=== PATIENT | female | born 1985 | race Caucasian/White ===

== ENCOUNTER → 2021-12-15 09:04 | Outpatient (CLI) | payer OTHER, SELFPAY ==
[2021-12-15 09:26] LABS: Add Manual Diff / Slide Review NO; Basophils Absolute Auto 0 /uL (0-100); Eosinophils Absolute Auto 100 /uL (0-450); Hematocrit 37.2 % (36-46); Lymphocytes Absolute Auto 1500 /uL (1100-4500); Lymphocytes Percent Auto 34.3 % (25-40); Mean Corpuscular HGB Conc 34.9 % (30-36); Mean Corpuscular Hemoglobin 31.9 PG (26-34); Mean Corpuscular Volume 91.3 fL (80-100); Monocytes Absolute Auto 500 /uL (0-900); Monocytes Percent Auto 10.7 % (3-14); Neutrophils Absolute Auto 2200 /uL (1500-7000); Platelet Count 215 X10^3/uL (150-400); Red Blood Cell Count 4.07 X10^6/uL (4.0-5.2); White Blood Cell Count 4.4 X10^3/uL (4.5-11.0)
[2021-12-15 09:37] LABS: Alanine Aminotransferase 17 IU/L (<35); Albumin 4.5 g/dL (3.5-5.0); Albumin Globulin Ratio 1.5 (1.0-2.8); Alkaline Phosphatase 36 U/L (38-126); Aspartate Aminotransferase 21 IU/L (14-36); BUN Creatinine Ratio 19.5 (6-22); Bilirubin Total 0.4 mg/dL (0.2-1.3); Blood Urea Nitrogen 15 mg/dL (7-17); Calcium 8.8 mg/dL (8.4-10.2); Carbon Dioxide 24 mmol/L (22-32); Chloride 104 mmol/L (98-107); Cholesterol 154 mg/dL (140-199); Estimated Glomerular Filt Rate > 60 mL/min (>60); Globulin 3.1 g/dL (1.7-4.1); Glucose 86 mg/dL (70-100); HDL Cholesterol 63 mg/dL (40-60); HEMOLYSIS < 15 (0-50); LDL Cholesterol Calculated 81 mg/dL (<100); Lipase 144 U/L (23-300); Sodium 138 mmol/L (137-145); Total Protein 7.6 g/dL (6.3-8.2); Triglycerides 51 mg/dL (35-150)
[2021-12-15 10:06] LABS: TSH w/ Reflex to FT4 2.49 uIU/mL (0.47-4.68)
[2021-12-15 10:48] LABS: Bacteria Urine Many (>30); Culture Indicated Urine Cult Not Indicated; RBC Urine 1-5/HPF (0-5/HPF); Squamous Epithelial Cell Urine 10-30 /HPF (0-5/HPF); WBC Urine 0-1/HPF (0-5/HPF)
== END ==
PROVIDERS: PCP Pediatrics; Referring Provider Pediatrics; Visit Provider Pediatrics
DX: R10.9 Unspecified abdominal pain (principal); R11.0 Nausea; R82.90 Unspecified abnormal findings in urine
CPT/HCPCS: 36415; 80053; 80061; 81015; 83690; 84443; 85025

== ENCOUNTER 2022-05-24 13:54 | Emergency (ER) | payer OTHER, SELFPAY ==
[2022-05-24 14:07] VITALS: BP 112/74; PULSE 69; RESP 16; TEMP 37.6; O2SAT 98; BMI 19.7
--- NOTE | 2022-05-24 14:21 | PC.NURSE ---
Patient told registration that she was leaving.
[2022-05-24 15:03] LABS: Influenza A - CEPHEID Flu A NEGATIVE (NEGATIVE); Influenza B - CEPHEID Flu B NEGATIVE (NEGATIVE); Respiratory Syncytial Virus Negative (Negative)
[2022-05-24 15:06] LABS: COVID-19 CEPHEID 4-PLEX PCR Negative (Negative)
--- NOTE | 2022-05-29 14:19 | ED.HA ---
HPI - Headache <Charisse Mensah PA-C - Last Filed: 05/29/22 14:20> General Chief Complaint: Headache Stated Complaint: severe head ache x4 days Time Seen by Provider: 05/24/22 14:06 History of Present Illness HPI Narrative: left w/o being seen Review of Systems <GOLDY Dan Last Filed: 05/29/22 14:20> Review of Systems Narrative: not seen Patient History <GOLDY Dan Last Filed: 05/29/22 14:20> Medical History Abdominal pain Chicken pox (~1989) Cloudy urine Nausea Family History Father Arrhythmia Social History Smoking Status: Never smoker Smoking Status: Never smoker Exam <Charisse Mensah PA-C - Last Filed: 05/29/22 14:20> Narrative Exam Narrative: not seen Initial Vital Signs Initial Vital Signs: Vital Signs Temperature 99.6 F 05/24/22 14:07 Pulse Rate 69 05/24/22 14:07 Respiratory Rate 16 05/24/22 14:07 Blood Pressure 112/74 05/24/22 14:07 Pulse Oximetry 98 05/24/22 14:07 Oxygen Delivery Method 05/24/22 14:07 <Sherrie Goldman DO - Last Filed: 05/30/22 07:47> Initial Vital Signs Initial Vital Signs: Vital Signs Temperature 99.6 F 05/24/22 14:07 Pulse Rate 69 05/24/22 14:07 Respiratory Rate 16 05/24/22 14:07 Blood Pressure 112/74 05/24/22 14:07 Pulse Oximetry 98 05/24/22 14:07 Oxygen Delivery Method 05/24/22 14:07 MDM - Headache <GOLDY Dan Last Filed: 05/29/22 14:20> Lab Data Labs: Lab Results 05/24/22 Range/Units 14:14 SARS-CoV-2 (PCR) Negative (Negative) Influenza A (RT-PCR) Flu a negative (NEGATIVE) Influenza B (RT-PCR) Flu b negative (NEGATIVE) RSV (PCR) Negative (Negative) <Sherrie Goldman DO - Last Filed: 05/30/22 07:47> Lab Data Labs: Lab Results 05/24/22 Range/Units 14:14 SARS-CoV-2 (PCR) Negative (Negative) Influenza A (RT-PCR) Flu a negative (NEGATIVE) Influenza B (RT-PCR) Flu b negative (NEGATIVE) RSV (PCR) Negative (Negative) Discharge Plan Departure Patient Disposition: Left Without Being Seen Clinical Impression: Patient left without being seen <Sherrie Goldman DO - Last Filed: 05/30/22 07:47> Cosign ED Attending Cosignature Attestation: MARCIANO I was immediately available in the department for consultation. Documentation has been reviewed. I agree with assessment and plan.
== END 2022-05-24 14:21 | disposition left against medical advice (07) ==
PROVIDERS: Emergency Provider Physician Assistant Medical; PCP Registered Nurse Diabetes Educator
DX: R51.9 Headache, unspecified (principal); Z20.822 Contact with and (suspected) exposure to COVID-19
CPT/HCPCS: 0241U; 99281

== ENCOUNTER → 2022-06-02 07:01 | Outpatient (CLI) | payer OTHER, SELFPAY ==
--- NOTE | 2022-06-02 07:02 | DI.US.S_ITS ---
PROCEDURE: US PELVIC COMPLETE INDICATIONS: INFERTILITY; POSSIBLE ENDOMETRIOSIS TECHNIQUE: Real-time scanning was performed of the pelvic organs, with image documentation. Additional endovaginal scanning was necessary due to incomplete visualization of the adnexal and endometrial structures by transabdominal scanning. COMPARISON: None. FINDINGS: Uterus: Uterus is anteverted and normal in size at 11 x 5.5 x 5.9 cm. The myometrium is homogeneous. The endometrium measures 7 mm combined thickness. Ovaries: The right ovary measures 3.2 x 4.1 x 1.3 cm, with a calculated ovarian volume of 9.1 cc. The left ovary measures 2.4 x 3.1 x 1.7 cm, with a calculated ovarian volume of 6.4 cc. The ovaries have a normal sonographic appearance. Less than 12 follicles can be seen in each ovary. No adnexal masses are seen. Other: No pathologic free abdominal or pelvic fluid. IMPRESSION: Focal ultrasound within normal limits. No adnexal masses are seen. We strive to produce accurate, complete, and clear reports of imaging services. To assist us in improving patient care, this report was composed using standard report templates and voice recognition software. Therefore, it may contain abnormal punctuation, insertions and/or omissions. Occasional wrong-word or sound-alike substitutions may occur. Though we review the report and make efforts to correct it, we do recommend that the report be read carefully in proper context to recognize any text inaccuracies. Dictated by: Timothy Hurtado M.D. on 06/02/2022 at 9:10 Approved by: Timothy Hurtado M.D. on 06/02/2022 at 9:11
== END ==
PROVIDERS: PCP Registered Nurse Diabetes Educator; Referring Provider Registered Nurse Diabetes Educator; Visit Provider Registered Nurse Diabetes Educator
DX: R10.2 Pelvic and perineal pain (principal); N80.9 Endometriosis, unspecified
CPT/HCPCS: 76830; 76856

== ENCOUNTER → 2022-09-04 13:33 | Outpatient (CLI) | payer OTHER, SELFPAY ==
[2022-09-04 13:53] LABS: Specimen Label NATERA
[2022-09-04 14:32] LABS: Add Manual Diff / Slide Review NO; Basophils Absolute Auto 0 /uL (0-100); Basophils Percent Auto 0.3 % (0-2); Eosinophils Absolute Auto 100 /uL (0-450); Eosinophils Percent Auto 0.8 % (2-4); Hematocrit 35.3 % (36-46); Hemoglobin 12.1 g/dL (12.0-16.0); Lymphocytes Absolute Auto 1500 /uL (1100-4500); Lymphocytes Percent Auto 12.9 % (25-40); Mean Corpuscular HGB Conc 34.3 % (30-36); Mean Corpuscular Hemoglobin 32.1 PG (26-34); Mean Corpuscular Volume 93.5 fL (80-100); Monocytes Absolute Auto 600 /uL (0-900); Monocytes Percent Auto 5.3 % (3-14); Neutrophils Absolute Auto 9400 /uL (1500-7000); Neutrophils Percent Auto 80.7 % (50-75); Platelet Count 220 X10^3/uL (150-400); Red Blood Cell Count 3.78 X10^6/uL (4.0-5.2); Red Cell Distribution Width 12.9 % (11.6-14.8); White Blood Cell Count 11.7 X10^3/uL (4.5-11.0)
[2022-09-04 15:12] LABS: TSH w/ Reflex to FT4 4.76 uIU/mL (0.47-4.68)
[2022-09-04 15:32] LABS: Hepatitis B Surface Antigen NEGATIVE s/c (NEGATIVE); Rubella Antibody IgG 54.7 IU/mL (>15)
[2022-09-04 15:37] LABS: Free T4, Direct Thyroxine 0.71 ng/dL (0.78-2.19)
[2022-09-04 15:48] LABS: HIV 1 & 2 Ab/Ag 4th Gen Combo NEGATIVE (NEGATIVE); Hep C Virus Ab w/Reflex Quant NEGATIVE s/c (NEGATIVE)
[2022-09-04 16:16] LABS: Appearance Urine UA CLEAR; Bilirubin Urine UA NEGATIVE (NEGATIVE); Color Urine UA YELLOW; Glucose Urine UA NEGATIVE (Negative); Ketones Urine UA NEGATIVE (NEGATIVE); Leukocyte Esterase Urine UA NEGATIVE (NEGATIVE); Nitrite Urine UA NEGATIVE (Negative); Occult Blood Urine UA NEGATIVE (Negative); Protein Urine UA NEGATIVE (Negative); Specific Gravity Urine UA 1.025 (1.000-1.035); Urobilinogen Urine UA 0.2 E.U./dL (0.2)
[2022-09-05 04:13] LABS: RPR Screen Non Reactive (Non Reactive)
[2022-09-05 08:07] LABS: Varicella IgG Antibody 441 index (Immune >165)
== END ==
PROVIDERS: PCP Registered Nurse Diabetes Educator; Referring Provider Family Medicine; Visit Provider Family Medicine
DX: Z34.81 Encounter for supervision of other normal pregnancy, first trimester (principal)
CPT/HCPCS: 36415; 80055; 81003; 84439; 84443; 86787; 86803; 86850; 86900; 86901; 87086; 87389

== ENCOUNTER → 2022-11-06 08:50 | Outpatient (CLI) | payer OTHER, SELFPAY ==
--- NOTE | 2022-11-06 08:51 | DI.US.S_ITS ---
PROCEDURE: US OB >= 14 WEEKS FETUS INDICATIONS: ANATOMY OUTSIDE/PRIOR DATING DATA: Last menstrual period (LMP): 06/14/2022. LMP-based estimated date of delivery (NOE): 03/21/2023. First dating scan (date and location): Today's exam. Estimated date of delivery (NOE) from first dating scan: 03/25/2023. The calculations are made using the clinical NOE of 03/21/2023. TECHNIQUE: Real-time scanning was performed of the fetus, with image documentation and biometric measurements. Endovaginal scanning: Not performed COMPARISON: None. FINDINGS: General: A single living intrauterine gestation is present. Presentation: Breech. Placenta: Placental position is posterior , without previa. Amniotic fluid index: 13.8 cm, normal range is 5-24 cm. Single deepest vertical pocket is 4.1 cm. heart rate: 130 beats per minute. Maternal cervical canal: 3.9 cm long. Normal lower limit is 2.5 cm. biometrics: Biparietal diameter: 4.6 centimeters, 19 weeks 5 days Head circumference: 17.5 centimeters, 20 weeks 0 days Abdominal circumference: 14.7 centimeters, 20 weeks 0 days Femur length: 3.4 centimeters, 20 weeks 5 days Clinically estimated gestational age: 20 weeks 5 days Composite gestational age from present scan: 20 weeks 1 day Estimated weight and percentile: 343 grams, 23rd percentile Anatomic survey: Neuro: Ventricles are non-dilated at less than 10 mm. Cisterna magna is normal at 3-11 mm. Cerebellum is normal in size and morphology. Nuchal skin fold: Normal at less than 6 mm between 14-21 weeks gestational age. Face: Nose and lips, facial profile are normal. Spine: No evidence for spina bifida. Heart: 4-chambered heart is present, with normal ventricular outflow tracts. Diaphragm: Diaphragm is intact. Stomach: Left-sided stomach is present. Kidneys: No hydronephrosis. Normal is less than 5 mm in 2nd trimester, less than 7 mm in 3rd trimester. Cord: 3-vessel cord has orthotopic insertion. Bladder: Normal in size. Extremities: All 4 extremities identified. IMPRESSION: Single living intrauterine at 20 weeks 5 days, NOE of 03/21/2023. Normal anatomy survey. Estimated weight 343 grams, corresponding to the 23rd percentile. We strive to produce accurate, complete, and clear reports of imaging services. To assist us in improving patient care, this report was composed using standard report templates and voice recognition software. Therefore, it may contain abnormal punctuation, insertions and/or omissions. Occasional wrong-word or sound-alike substitutions may occur. Though we review the report and make efforts to correct it, we do recommend that the report be read carefully in proper context to recognize any text inaccuracies. Dictated by: Mahamed Belle M.D. on 11/06/2022 at 12:19 Approved by: Mahamed Belle M.D. on 11/06/2022 at 12:21
== END ==
PROVIDERS: PCP Registered Nurse Diabetes Educator; Referring Provider Family Medicine; Visit Provider Family Medicine
DX: Z34.02 Encounter for supervision of normal first pregnancy, second trimester (principal); Z3A.20 20 weeks gestation of pregnancy
CPT/HCPCS: 76811

== ENCOUNTER → 2022-12-30 07:33 | Outpatient (CLI) | payer OTHER, SELFPAY ==
[2022-12-30 09:39] LABS: Add Manual Diff / Slide Review NO; Basophils Absolute Auto 0 /uL (0-100); Basophils Percent Auto 0.2 % (0-2); Eosinophils Absolute Auto 100 /uL (0-450); Eosinophils Percent Auto 1.2 % (2-4); Hematocrit 34.8 % (36-46); Lymphocytes Absolute Auto 1100 /uL (1100-4500); Lymphocytes Percent Auto 9.8 % (25-40); Mean Corpuscular HGB Conc 34.6 % (30-36); Mean Corpuscular Volume 95.3 fL (80-100); Monocytes Absolute Auto 600 /uL (0-900); Monocytes Percent Auto 5.2 % (3-14); Neutrophils Absolute Auto 9500 /uL (1500-7000); Neutrophils Percent Auto 83.6 % (50-75); Platelet Count 199 X10^3/uL (150-400); Red Blood Cell Count 3.65 X10^6/uL (4.0-5.2); Red Cell Distribution Width 13.2 % (11.6-14.8); White Blood Cell Count 11.4 X10^3/uL (4.5-11.0)
[2022-12-30 10:04] LABS: GTT (PREG) 1 Hour PP 50gm Dose 137 mg/dL (76-139)
== END ==
PROVIDERS: PCP Registered Nurse Diabetes Educator; Referring Provider Family Medicine; Visit Provider Family Medicine
DX: Z34.82 Encounter for supervision of other normal pregnancy, second trimester (principal); Z3A.26 26 weeks gestation of pregnancy
CPT/HCPCS: 36415; 82950; 85025

== ENCOUNTER → 2023-01-29 15:27 | Outpatient (CLI) | payer OTHER, SELFPAY ==
[2023-01-29 16:44] LABS: Thyroid Stimulating Hormone 2.82 uIU/mL (0.47-4.68)
== END ==
PROVIDERS: PCP Registered Nurse Diabetes Educator; Referring Provider Family Medicine; Visit Provider Family Medicine
DX: Z34.81 Encounter for supervision of other normal pregnancy, first trimester (principal); E03.9 Hypothyroidism, unspecified
CPT/HCPCS: 36415; 84443; 86850

== ENCOUNTER → 2023-02-26 10:48 | Outpatient (CLI) | payer OTHER, SELFPAY ==
[2023-02-27 15:16] LABS: Strep Grp B PCR NEG for Grp B Strep
== END ==
PROVIDERS: PCP Registered Nurse Diabetes Educator; Visit Provider Family Medicine
DX: Z34.81 Encounter for supervision of other normal pregnancy, first trimester (principal)
CPT/HCPCS: 87653

== ENCOUNTER 2023-03-08 12:54 | Outpatient (CLI) | payer OTHER, SELFPAY | END 2023-03-08 14:02 | disposition home or self-care (01) | LOC: LABOR 13:19 → OB 03-09 12:09 | PROVIDERS: PCP Registered Nurse Diabetes Educator; Referring Provider Obstetrics & Gynecology; Visit Provider Obstetrics & Gynecology | DX: O42.92 Full-term premature rupture of membranes, unspecified as to length of time between rupture and onset of labor (principal); O36.8130 Decreased fetal movements, third trimester, not applicable or unspecified; O09.523 Supervision of elderly multigravida, third trimester; Z3A.38 38 weeks gestation of pregnancy | CPT/HCPCS: 59025; 84112; G0378; G0379 ==

== ENCOUNTER 2023-03-18 22:07 | Outpatient (CLI) | payer OTHER, SELFPAY ==
--- NOTE | 2023-03-18 23:59 | P.TNLD_ITS ---
Visit Information Visit Information Date of evaluation: 03/18/23 Primary OB Provider: Emilia Chacon On-call OB Provider: Rasheeda José Reason for Evaluation: Yes rule out labor Comments/Additional reasons for admission: 37yo at 39.5w presenting with painful contractions. Denies LOF, VB. Good movement. complicated by Rh negative, AMA, hypothyroidism, history precipitous labor. Vital Signs Vital Signs: T97.4 BP 120/80 HR68 [facility] Medical History (Updated 03/19/23 @ 00:09 by Rasheeda José, ) Eye injury COVID-19 (~2021) Chicken pox (~1989) Nausea Abdominal pain Surgical History (Updated 09/04/22 @ 13:44 by Mason Frye) [place] teeth extracted Family History (System 09/04/22 @ 13:44 by Mason Frye) Father Arrhythmia Family/Other Breast cancer Grandfather Diabetes mellitus Social History (System 09/04/22 @ 13:44 by Mason Frye) marital status: number of children: 2 household members: spouse and children lives independently: Yes caregiver/support person: Yes housing: [facility] pets and animals: No education level: college occupational status: employed current occupational exposures/hazards: No special isaias needs: No travel history: recent seatbelt use: always helmet use: Yes water heater temp set < 120 deg: Yes working smoke detector in home: Yes fire extinguisher in home: No carbon monox detector in home: Yes firearms in home: Yes do you feel safe at home: Yes Smoking Status: Never smoker second hand exposure: No alcohol intake: former substance use type: does not use during the past year weight has: remained stable well-balanced diet: about half the time daily servings fruits/ve-4 caffeine: Yes (1 cup coffee in AM) Type(s) of exercise: walking Review of Systems Review of Systems ROS: Yes All systems reviewed with the patient and are negative except as otherwise documented Constitutional Constitutional: Reports as per HPI Exam Vital Signs (past 8 hours): T97.4 BP 120/80 HR68 Const General: cooperative Eyes General: appearance normal, both eyes and all related structures Resp Effort & Inspection: normal respiratory effort Cardio Rate: regular rate Psych Appearance: grossly normal Evaluation Evaluation Baseline heart rate: 130 Variability: Moderate (11-25) monitor accelerations: Present (15x15) Monitor Decelerations: Absent Contraction Frequency (minutes): 4 Uterine Contraction Intensity: Mild Category of Tracing: Reactive Status: Category l Cervical dilation (cm): 4 Diagnosis, Plan/Disposition Final Diagnosis (1) False labor after 37 completed weeks of gestation: Status: Acute (2) 39 weeks gestation of : Status: Acute Plan/Disposition Plan: 37yo at 39.5w, false labor - NST reactive - 4cm, 3.5cm last visit in office. She prefers to labor at home and lives close. - Discharge to home, follow up as scheduled. Labor precautions. OB Disposition: home
== END 2023-03-18 23:10 | disposition home or self-care (01) ==
LOC: OB 03-21 15:05
PROVIDERS: PCP Registered Nurse Diabetes Educator; Referring Provider Family Medicine; Visit Provider Family Medicine
DX: O47.1 False labor at or after 37 completed weeks of gestation (principal); Z3A.39 39 weeks gestation of pregnancy
CPT/HCPCS: 59025; G0378; G0379

== ENCOUNTER 2023-03-19 06:50 | Inpatient (IN) | payer OTHER, SELFPAY ==
[2023-03-19 07:57] VITALS: BP 115/69
[2023-03-19 07:59] LABS: Add Manual Diff / Slide Review NO; Basophils Absolute Auto 100 /uL (0-100); Basophils Percent Auto 0.7 % (0-2); Eosinophils Absolute Auto 100 /uL (0-450); Eosinophils Percent Auto 0.7 % (2-4); Hematocrit 39.8 % (36-46); Hemoglobin 13.7 g/dL (12.0-16.0); Lymphocytes Absolute Auto 2700 /uL (1100-4500); Lymphocytes Percent Auto 26.4 % (25-40); Mean Corpuscular HGB Conc 34.4 % (30-36); Mean Corpuscular Hemoglobin 32.4 PG (26-34); Monocytes Absolute Auto 900 /uL (0-900); Monocytes Percent Auto 8.9 % (3-14); Neutrophils Absolute Auto 6400 /uL (1500-7000); Neutrophils Percent Auto 63.3 % (50-75); Platelet Count 171 X10^3/uL (150-400); Red Blood Cell Count 4.23 X10^6/uL (4.0-5.2); Red Cell Distribution Width 12.8 % (11.6-14.8)
--- NOTE | 2023-03-19 08:05 | PM.OBHP.IH.1 ---
OB HPI Date/Time Date of admission: 03/19/23 Date Patient Seen: 03/19/23 Time Patient Seen: 08:05 History of Present Condition Chief complaint: OB NOE Calculator Estimated Delivery Date Method Current WG Current Estimate 03/21/23 Manual 39w 5d Final NOE - MAGNUS Other Estimates 03/21/23 LMP (Certain) 39w 5d 03/22/23 Ultrasound #1 39w 4d Estimated Gestational Age (weeks): 39w5d : 3 Para: 2 Narrative: Pt is a 37yo at 39w5d who presented with regular painful contractions. The pt was seen in L&D last night for r/o labor and ultimately sent home without significant cervical change. She states that her contractions increased in frequency and intensity significantly this morning. She had mild vaginal bleeding as well. She denies any LOF. Her baby is moving regularly. The pts was complicated by hypothyroidism, on Levothyroxine. She is also AMA with negative cfDNA testing. care: good care, initiated at week # (11) and pounds weight gain (32) Dating criteria OB: LMP confirmed by 1st trimester US Ultrasounds: normal 1st trimester US and normal mid trimester US Obstetrical complications: none Medical complications OB: other (Hypothyroidism) Preadmission Labs Last OB Lab Results: Blood Type A Negative 09/04/22 13:37 Antibody Screen Negative 01/29/23 15:39 Hematocrit 39.8 % (36-46) 03/19/23 07:20 Hemoglobin 13.7 g/dL (12.0-16.0) 03/19/23 07:20 Hepatitis B Surface Antigen Negative s/c (NEGATIVE) 09/04/22 13:37 Hepatitis C Antibody Negative s/c (NEGATIVE) 09/04/22 13:37 Rubella Antibody 54.7 IU/mL (>15) 09/04/22 13:37 Varicella-Zoster IgG Antibody 441 index (Immune >165) 09/04/22 13:37 Glucose 1 Hour 137 mg/dL (76-139) 12/30/22 08:46 Group B Streptococcus (PCR) Neg for grp b strep 02/26/23 10:48 -: Urine: negative Genetic Screens: Cell-free DNA: Normal External Labs -: Urine: negative Prior (ies) Past Pregnancies Del. Date GA/Weeks Labor Lgth Wt Sex Route Outcome Anesthesia Place Delv Breastfeed Preg Comp Name 12/03/07 40 9 7 lb 3 oz Male vaginal vacuum live - full term [facility] Erica 18 months none Tej 04/26/13 40.3 1 7 lb 3 oz Male vaginal live - full term [facility] 17 months none Ray Delivery Date: 04/26/13 Last Updated by: Milena Matthew RN precipitous delivery, GBS+ Evaluation Evaluation Baseline heart rate: 120 Variability: Moderate (11-25) monitor accelerations: Present Monitor Decelerations: Absent Contraction Frequency (minutes): 3 Uterine Contraction Intensity: Strong/Firm Status: Category l Dilation (cm): 9 Effacement (%): 100 station: +1 [facility] Medical History (Updated 03/19/23 @ 00:09 by Rasheeda José DO) Eye injury COVID-19 (~2021) Chicken pox (~1989) Nausea Abdominal pain Surgical History (Updated 09/04/22 @ 13:44 by Mason Frye) [place] teeth extracted Family History (System 09/04/22 @ 13:44 by Mason Frye) Father Arrhythmia Family/Other Breast cancer Grandfather Diabetes mellitus Social History (System 09/04/22 @ 13:44 by Mason Frye) marital status: number of children: 2 household members: spouse and children lives independently: Yes caregiver/support person: Yes [facility] pets and animals: No education level: college occupational status: employed current occupational exposures/hazards: No special isaias needs: No travel history: recent seatbelt use: always helmet use: Yes water heater temp set < 120 deg: Yes working smoke detector in home: Yes fire extinguisher in home: No carbon monox detector in home: Yes firearms in home: Yes do you feel safe at home: Yes Smoking Status: Never smoker second hand exposure: No alcohol intake: former substance use type: does not use during the past year weight has: remained stable well-balanced diet: about half the time daily servings fruits/ve-4 caffeine: Yes (1 cup coffee in AM) Type(s) of exercise: walking Meds Home Medications and Allergies Home Medications Medication Instructions Recorded Confirmed Type digestive enzymes 1 cap PO DAILY 07/24/22 03/19/23 History prenat.vits,carter,[id number] 1 tab PO DAILY 07/24/22 03/19/23 History levothyroxine 50 mcg tablet 50 mcg PO DAILY #90 tabs 02/02/23 03/19/23 Rx Allergies Allergy/AdvReac Type Severity Reaction Status Date / Time No Known Drug Allergies Allergy Unverified 03/12/23 14:29 OB Exam Resp Effort & Inspection: normal respiratory effort Auscultation: clear to auscultation bilaterally Cardio Rate: regular rate Rhythm: regular rhythm Heart Sounds: S1 normal, S2 normal and no murmurs GI Inspection: non-distended Palpation: Yes soft and No tender Presentation: vertex Objective Labs 03/19/23 07:20 Labs: Laboratory Results - last 24 hr 03/19/23 07:20 WBC 10.0 RBC 4.23 Hgb 13.7 Hct 39.8 MCV 94.0 MCH 32.4 MCHC 34.4 RDW 12.8 Plt Count 171 Neut % (Auto) 63.3 Lymph % (Auto) 26.4 Mel[place] % (Auto) 8.9 Eos % (Auto) 0.7 L Baso % (Auto) 0.7 Neut # (Auto) 6400 Lymph # (Auto) 2700 Mel[place] # (Auto) 900 Eos # (Auto) 100 Baso # (Auto) 100 Assessment and Plan Assessment and Plan Assessment and Plan narrative: 37yo at 39w5d here in active labor. complicated by hypothyroidism, on Levothyroxine. GBS negative, Rh negative. SROM with clear fluid. - Expectant management, anticipate - FHT reassuring, intermittent monitoring okay - GBS negative, no prophylaxis indicated - Desires natural methods for pain control
[2023-03-19] MEDS: OXYTOCIN PREMIX 30 UNIT/500 ML PLAST..BAG 200 UNIT IV (08:59)
[2023-03-19] MEDS: LIDOCAINE 1% 20 ML INJ (09:05)
--- NOTE | 2023-03-19 09:28 | PM.OBPRVD ---
Labor & Delivery Delivery date: 03/19/23 Cervical ripening method: none Induction method: none Delivery monitor: external FHT and external uterine Route of delivery: Episiotomy description: None L&D Laceration Description: Perineal - 1st Degree Quantitative Blood Loss: 300 Anesthesia Type: None Complications: None Narrative: PROCEDURE: at 39w5d presented in active labor and was admitted to Labor and Delivery. The patient progressed through the 1st stage over 1.5 hours. ROM occured at 7:30 with clear fluid. Pain was controlled with natural methods. The patient progressed through the 2nd stage over 30 minutes and delivered a viable female infant with APGARs 9/9 at 8:50 via without complications. The cord was cut and clamped after it stopped pulsating. The placenta delivered with gentle cord traction, and appeared complete. The perineum and vagina were inspected with 1st degree laceration repaired with 3-O Chromic for hemostasis. Needle and sponge counts were correct.? The vagina was inspected and no items were left in situ. Vira was doing well with her and her at bedside. PREPROCEDURE DIAGNOSIS: Intrauterine at 39w5d Hypothyroidism GBS negative RH negative POSTPROCEDURE DIAGNOSIS: Intrauterine at 39w5d, delivered Same as preprocedure Baby 1: gender: Female Presentation: vertex Position: Right Occiput Anterior Placenta delivery description: Spontaneous Cord Vessel Description: 3 Vessels score (1 min): 9 score (5 min): 9 weight: 7 lb 6.873 oz Plan for aftercare: Routine care
[2023-03-19 11:05] VITALS: BP 116/83
[2023-03-19] MEDS: DERMOPLAST SPRAY 20% 60 ML 1 SPRAY TOP (11:33)
--- NOTE | 2023-03-20 11:19 | P.DS_ITS ---
Discharge Providers Provider Date of admission: 03/19/23 06:50 Discharge Date: 03/20/23 Primary care physician: ELA Sanchez Consults: 03/19/23 07:36 Consult to Anesthesiology Urgent Comment: Consulting Provider: Emilia Chacon Reason for consultation: Epidural 03/20/23 09:26 Consult to Blood Bank Order Control Clerk Routine Comment: Discharge provider: Emilia Chacon MD Summary Hospital Course Date Patient Seen: 03/20/23 Time Patient Seen: 11:19 Diagnoses: Intrauterine at 39w5d Hypothyroidism GBS negative RH negative Spontaneous vaginal delivery Hospital Course: The pt presented in active labor. She had SROM with clear fluid. She used natural methods for pain control. She progressed to complete and had an of a viable baby girl without complications. A 1st degree perineal laceration was then repaired for hemostasis. , there were no complications. At the time of discharge she was voiding, ambulating, and passing flatus without difficulty. Her lochia was decreasing appropriately. Her pain was well controlled. She will f/u in 6 weeks for check. She was with good latch. She received Rhogam prior to d/c. Peripartum Data Infant Delivery Method: Natural Vaginal Laceration Description: Perineal - 1st Degree Episiotomy description: None Procedures: Spontaneous vaginal delivery complications: none Vest 1: Gender: Female Disposition of : home Discharge Diagnosis (1) Spontaneous vaginal delivery: Status: Acute Time Spent with Patient Time attestation: Total time spent providing and/or coordinating discharge services: Objective Labs 03/19/23 07:20 Labs: Laboratory Results - last 24 hr 03/20/23 06:23 Maternal Bleed Negative Exam Narrative Exam Narrative: Gen: NAD, sitting comfortably in bed, appears well CV: RRR, no murmurs Resp: clear to auscultation bilaterally Abd: soft, appropriately tender, fundus firm and below the umbilicus, nondistended Ext: no edema Discharge Plan Discharge Plan Patient Disposition: Home Discharge orders & Medications Prescriptions: Continued levothyroxine 50 mcg tablet 50 mcg PO DAILY Qty: 90 2RF prenat.vits,carter,[id number] Tablet 1 tab PO DAILY digestive enzymes Capsule 1 cap PO DAILY Rx Instructions: administer with food; swallow whole; do not crush/chew/dissolve/break/cut Follow up/Referrals: Emilia Chacon MD [Physician] - (6 week post appt with Dr. Chacon on 04/30/2023 @ 12pm) Diet/Activity/Treatments Diet: Diet as Tolerated and Regular Skin/Wound/Dressing Care Report to your healthcare provider any signs of infection, such as:: chills, fever, increased pain and unusual drainage Visit Report/Discharge Packet Instructions: DI for Labor and Delivery, Vaginal Stand Alone Forms: Discharge: Care, Patient Portal/API, Stroke Signs & Symptoms Discharge Data Primary Care Provider: Colten Gillette
[2023-03-20] MEDS: RHO(D) IMMUNE GLOBULIN 1,500 UNIT SYRINGE 1500 UNIT IM (11:36)
[2023-03-20 13:10] VITALS: BP 124/76; PULSE 84; RESP 18; TEMP 36.6
== END 2023-03-20 12:00 | disposition home or self-care (01) | DRG 807 ==
PROVIDERS: Admitting Provider Family Medicine; PCP Registered Nurse Diabetes Educator; Referring Provider Family Medicine; Visit Provider Family Medicine
DX: O99.284 Endocrine, nutritional and metabolic diseases complicating childbirth (principal); Z37.0 Single live birth; O70.0 First degree perineal laceration during delivery; E03.9 Hypothyroidism, unspecified; Z3A.39 39 weeks gestation of pregnancy; O47.1 False labor at or after 37 completed weeks of gestation
CPT/HCPCS: 36415; 59025; 59050; 59400; 85025; 85461; 86850; 86870; 86900; 86901; G0379; J2590; J2790